=== PATIENT | male | born 1990 | race Caucasian/White ===

== ENCOUNTER 2019-05-01 22:59 | Emergency (ER) | payer OTHER ==
[2019-05-02 00:08] VITALS: BP 125/67
[2019-05-02] MEDS ORDERED: KEFLEX500 M1 PO (00:43)
== END 2019-05-02 00:43 | disposition home or self-care (01) | DRG 605 ==
LOC: ED 22:59 → EDBD 22:59 → ED 23:59
DX: S61.251A Open bite of left index finger without damage to nail, initial encounter (principal); W59.11XA Bitten by nonvenomous snake, initial encounter

== ENCOUNTER 2023-03-20 21:44 | Emergency (ER) | payer OTHER ==
[~2023-03-20 21:44] MED LIST: KEFLEX500 M1 PO
[2023-03-20] MEDS ORDERED: NAPROXEN500 MG PO (23:44)
[2023-03-21 00:19] VITALS: BP 132/74
== END 2023-03-21 00:19 | disposition designated cancer center or children's hospital (05) | DRG 563 ==
LOC: ED 21:44
DX: S83.91XA Sprain of unspecified site of right knee, initial encounter (principal); W19.XXXA Unspecified fall, initial encounter; Y93.67 Activity, basketball; Y92.149 Unspecified place in prison as the place of occurrence of the external cause